=== PATIENT | male | born 1975 | race Caucasian/White ===

== ENCOUNTER 2020-09-18 16:57 | Emergency (ER) | payer OTHER ==
[~2020-09-18 16:57] MED LIST: COREG6.25 MG PO; COUMADIN5 MG PO; COZAAR100 MG PO; ELIQUIS 5 MG TAB5 MG PO; GLUCOPHAGE500 MG PO; GLUCOPHAGE850 MG PO; HUMIRA PEN40 MG/0.4 SQ; IBUPROFEN800 MG PO; LASIX20 MG PO; LOPRESSOR 50 MG50 MG PO; OXYCONTIN10 MG PO; POTASSIUM CHLO10 MEQ PO; VENTOLIN HFA 66.7 GM INH; XARELTO10 MG PO
[2020-09-18 19:05] LABS: RED BLOOD COUNT 6.03 M/UL (4.20-5.50); WHITE BLOOD COUNT 8.3 K/UL (4.5-11.0)
[2020-09-18 19:27] LABS: BUN/CREATININE RATIO 10 (0-10)
[2020-09-18 19:49] LABS: HEMOGLOBIN 20.9 gm/dl (14.0-17.5)
[2020-09-18] MEDS ORDERED: AUGMENTIN 875-1 EACH PO (20:54)
== END 2020-09-18 21:20 | disposition home or self-care (01) ==
LOC: ER1 16:57
PROVIDERS: Physician Assistant
DX: K04.7 Periapical abscess without sinus (principal); E66.9 Obesity, unspecified; E11.9 Type 2 diabetes mellitus without complications; F17.210 Nicotine dependence, cigarettes, uncomplicated; Z79.4 Long term (current) use of insulin; Z79.899 Other long term (current) drug therapy
CPT/HCPCS: 70487; 80053; 83605; 85025; 85652; 86140; 96374; 96375; 99284; J0295; J1885; Q9967

== ENCOUNTER 2021-03-06 13:28 | Inpatient (IN) | payer OTHER ==
[~2021-03-06] VITALS: Ht 22.9 cm; Wt 181.4 kg
[~2021-03-06 13:28] MED LIST changes: +AUGMENTIN 875-1 EACH PO; +TRULICITY1.5 MG/0.5 SQ
[2021-03-06 15:02] LABS: RED BLOOD COUNT 5.74 M/UL (4.20-5.50); WHITE BLOOD COUNT 6.2 K/UL (4.5-11.0)
[2021-03-06 15:28] LABS: BUN/CREATININE RATIO 12 (0-10)
[2021-03-06 19:08] LABS: HEMOGLOBIN 19.6 gm/dl (14.0-17.5); RED BLOOD COUNT 5.76 M/UL (4.20-5.50); WHITE BLOOD COUNT 6.1 K/UL (4.5-11.0)
[2021-03-07] MEDS ORDERED: GLUCOPHAGE 850850 MG PO (01:45)
[2021-03-07] MEDS ORDERED: FUROSEMIDE20 MG PO (01:45)
[2021-03-07] MEDS ORDERED: POTASSIUM CHLO10 MEQ PO (01:45)
[2021-03-07] MEDS ORDERED: GLIPIZIDE ER5 MG PO (01:45)
[2021-03-07] MEDS ORDERED: VITAMIN C250 MG PO (01:46)
[2021-03-07] MEDS ORDERED: ZINC50 MG PO (01:46)
[2021-03-07] MEDS ORDERED: LOSARTAN POTAS100 MG PO (01:47)
[2021-03-07 02:52] LABS: HEMOGLOBIN 18.5 gm/dl (14.0-17.5); RED BLOOD COUNT 5.45 M/UL (4.20-5.50); WHITE BLOOD COUNT 5.4 K/UL (4.5-11.0)
[2021-03-07 03:13] LABS: BUN/CREATININE RATIO 21 (0-10)
[2021-03-07] MEDS ORDERED: PERCOCET 10-321 EACH PO (10:12)
[2021-03-07] MEDS ORDERED: CRESTOR10 MG PO (10:12)
[2021-03-07] MEDS ORDERED: SKYRIZI PE150 MG/1 M SQ (10:14)
[2021-03-08 06:00] LABS: HEMOGLOBIN 17.9 gm/dl (14.0-17.5); RED BLOOD COUNT 5.5 M/UL (4.20-5.50); WHITE BLOOD COUNT 4.8 K/UL (4.5-11.0)
[2021-03-08 06:55] LABS: BUN/CREATININE RATIO 24 (0-10)
[2021-03-09 05:29] LABS: HEMOGLOBIN 17.1 gm/dl (14.0-17.5); RED BLOOD COUNT 5.31 M/UL (4.20-5.50); WHITE BLOOD COUNT 6.5 K/UL (4.5-11.0)
[2021-03-09 05:41] LABS: BUN/CREATININE RATIO 30 (0-10)
[2021-03-09 19:10] LABS: HEMATOCRIT 55.5 % (37.5-51.0)
[2021-03-10 05:06] LABS: HEMOGLOBIN 17.4 gm/dl (14.0-17.5); RED BLOOD COUNT 5.41 M/UL (4.20-5.50); WHITE BLOOD COUNT 7.1 K/UL (4.5-11.0)
[2021-03-10 13:50] LABS: BUN/CREATININE RATIO 33 (0-10)
[2021-03-11 05:07] LABS: HEMOGLOBIN 16.9 gm/dl (14.0-17.5); RED BLOOD COUNT 5.2 M/UL (4.20-5.50); WHITE BLOOD COUNT 6.7 K/UL (4.5-11.0)
[2021-03-11 07:58] LABS: BUN/CREATININE RATIO 32 (0-10)
[2021-03-12 05:56] LABS: HEMOGLOBIN 17.2 gm/dl (14.0-17.5); RED BLOOD COUNT 5.21 M/UL (4.20-5.50); WHITE BLOOD COUNT 7.7 K/UL (4.5-11.0)
[2021-03-12 06:13] LABS: BUN/CREATININE RATIO 29 (0-10)
[2021-03-12] MEDS ORDERED: MEDROL DOSEPAK 24 MG PO (09:00)
[2021-03-12] MEDS ORDERED: ASPIRIN81 MG PO (09:00)
--- NOTE | 2021-03-12 11:10 | NUR ---
PATIENT HAS BEEN EDUCATED ON DISCAHRGE INSTRUCTIONS AND VERBALLY STATES HE UNDERSTANDS THE INSTRUCTIONS. CASE MANAGMENT HAS BEEN MADE AWARE OF HIS DISCHARGE AND CONTACTED [employer] TO BRING A PORTABLE OXYGEN TANK FOR TRANSPORT HOME WHICH THEY DID. OXYGEN TANK WAS SET TO 3L NC. THE PATIENT IS STABLE AND HIS IS COMING TO PICK HIM UP AT THE FRONT OF THE HOSPITAL.
== END 2021-03-12 12:46 | disposition home or self-care (01) | DRG 871 ==
LOC: ER1 13:28 → CDU 17:34 → PROG CARE 17:34 → CCU 17:34 → PROG CARE 23:57 → CCU 03-07 15:32
PROVIDERS: Internal Medicine; Internal Medicine Pulmonary Disease; Physician Assistant; Registered Nurse; ADMIT Internal Medicine
PROC: 8E0ZXY6 Isolation (ICD-10-PCS; principal; 2021-03-06)
PROC: 5A09357 Assistance with Respiratory Ventilation, Less than 24 Consecutive Hours, Continuous Positive Airway Pressure (ICD-10-PCS; 2021-03-06)
PROC: 3E0333Z Introduction of Anti-inflammatory into Peripheral Vein, Percutaneous Approach (ICD-10-PCS; 2021-03-06)
PROC: XW033E5 Introduction of Remdesivir Anti-infective into Peripheral Vein, Percutaneous Approach, New Technology Group 5 (ICD-10-PCS; 2021-03-07)
PROC: 5A0945A Assistance with Respiratory Ventilation, 24-96 Consecutive Hours, High Flow/Velocity Cannula (ICD-10-PCS; 2021-03-07)
DX: A41.89 Other specified sepsis (principal); U07.1 COVID-19; J80 Acute respiratory distress syndrome; J12.82 Pneumonia due to coronavirus disease 2019; E66.2 Morbid (severe) obesity with alveolar hypoventilation; E87.2 Acidosis; Z68.43 Body mass index [BMI] 50.0-59.9, adult; R65.20 Severe sepsis without septic shock; I11.9 Hypertensive heart disease without heart failure; L40.9 Psoriasis, unspecified; D45 Polycythemia vera; E11.65 Type 2 diabetes mellitus with hyperglycemia; F17.210 Nicotine dependence, cigarettes, uncomplicated; G47.33 Obstructive sleep apnea (adult) (pediatric); E88.09 Other disorders of plasma-protein metabolism, not elsewhere classified; D69.6 Thrombocytopenia, unspecified; Z79.01 Long term (current) use of anticoagulants; Z79.82 Long term (current) use of aspirin; Z88.1 Allergy status to other antibiotic agents; Z99.81 Dependence on supplemental oxygen; Z79.4 Long term (current) use of insulin
CPT/HCPCS: 0240U; 36415; 36600; 71045; 80048; 80053; 81001; 82550; 82553; 82607; 82747; 82803; 82962; 83036; 83605; 83615; 83874; 83880; 83921; 84484; 85025; 85027; 86140; 87040; 87081; 93005; 94640; 94660; 94664; 94760; 96374; 96375; 99285; J0248; J0692; J1100; J1650; J1940; J7030; J7050; Q9967